=== PATIENT | female | born 2000 | race Caucasian/White ===

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

== ENCOUNTER → 2022-01-16 | Outpatient (CLI) | payer OTHER ==
[~2022-01-16] MED LIST changes: -QUET50TA3; +QUET50TA4
[2022-01-16 10:46] LABS: BASO # 0.1 10^3/uL (0.0-0.2); BASO % 1.1 % (0.0-1.0); EOS # 0.6 10^3/uL (0.0-0.5); EOS % 7.6 % (0.0-3.0); HEMATOCRIT 38.5 % (36.0-47.0); HEMOGLOBIN 12.7 g/dl (12.0-15.5); LYMPH # 3.1 10^3/uL (1.5-5.0); LYMPH % 42.7 % (24.0-44.0); MEAN CORPUSCULAR HEMOGLOBIN 28.8 pg (27.0-33.0); MEAN CORPUSCULAR VOLUME 87.3 fl (80.0-96.0); MONO # 0.8 10^3/uL (0.0-0.8); MONO % 11.3 % (2.0-8.0); NEUTROPHILS # 2.7 10^3/uL (1.5-8.5); PLATELET COUNT, AUTOMATED 332 10^3/uL (150-450); RED BLOOD COUNT 4.41 10^6/uL (4.00-5.40); WHITE BLOOD COUNT 7.2 10^3/uL (4.0-10.0)
[2022-01-16 11:08] LABS: HEMOGLOBIN A1c 5.3 %
[2022-01-16 11:21] LABS: ALBUMIN 3.8 GM/DL (3.2-5.2); ALT/SGPT 18 U/L (12-78); BILIRUBIN,DIRECT 0.1 MG/DL (0.0-0.2); BILIRUBIN,TOTAL 0.3 MG/DL (0.2-1.0); BLOOD UREA NITROGEN 13 MG/DL (7-18); CALCIUM LEVEL 9.7 MG/DL (8.5-10.1); CARBON DIOXIDE LEVEL 24 MEQ/L (21-32); CHLORIDE LEVEL 111 MEQ/L (98-107); CHOLESTEROL LEVEL 119 MG/DL (<200); CHOLESTEROL RISK RATIO 2.288 (<5); CREATININE FOR GFR 0.43 MG/DL (0.55-1.30); GLUCOSE, FASTING 105 MG/DL (70-100); HDL CHOLESTEROL 52 MG/DL (>40); LDL CHOLESTEROL 58 MG/DL (<100); NON-HDL-C 67 MG/DL; POTASSIUM SERUM 4.2 MEQ/L (3.5-5.1); SODIUM LEVEL 141 MEQ/L (136-145); TRIGLYCERIDES LEVEL 44 MG/DL (<150); VALPROIC ACID (DEPAKOTE) 23.4 UG/ML (50.0-100.0)
== END ==
LOC: M PLALAB 08:25
PROVIDERS: ATTEND Psychiatry & Neurology Psychiatry
DX: F90.2 Attention-deficit hyperactivity disorder, combined type (principal); F71 Moderate intellectual disabilities; Z65.8 Other specified problems related to psychosocial circumstances; F43.10 Post-traumatic stress disorder, unspecified; F41.1 Generalized anxiety disorder; F40.10 Social phobia, unspecified; F29 Unspecified psychosis not due to a substance or known physiological condition

== ENCOUNTER → 2023-02-07 | Outpatient (REF) | payer OTHER | LOC: M LAB REF 21:08 | PROVIDERS: ATTEND Physician Assistant | DX: J02.9 Acute pharyngitis, unspecified (principal) ==

== ENCOUNTER → 2023-03-07 | Outpatient (CLI) | payer OTHER ==
[2023-03-07 17:26] LABS: BASO # 0.1 10^3/uL (0.0-0.2); BASO % 1.3 % (0.0-1.0); EOS # 0.6 10^3/uL (0.0-0.5); EOS % 7.3 % (0.0-3.0); HEMATOCRIT 40.6 % (36.0-47.0); HEMOGLOBIN 13.4 g/dl (12.0-15.5); LYMPH # 2.8 10^3/uL (1.5-5.0); MEAN CORPUSCULAR HEMOGLOBIN 29.4 pg (27.0-33.0); MONO # 0.7 10^3/uL (0.0-0.8); MONO % 8.5 % (2.0-8.0); NEUTROPHILS # 3.8 10^3/uL (1.5-8.5); NEUTROPHILS % 47.8 % (36.0-66.0); PLATELET COUNT, AUTOMATED 335 10^3/uL (150-450); RED BLOOD COUNT 4.56 10^6/uL (4.00-5.40); WHITE BLOOD COUNT 7.9 10^3/uL (4.0-10.0)
[2023-03-07 17:51] LABS: VALPROIC ACID (DEPAKOTE) < 3.0 UG/ML (50.0-100.0)
[2023-03-07 17:55] LABS: ALBUMIN 4.1 G/DL (3.2-5.2); ALKALINE PHOSPHATASE 91 U/L (46-116); ALT/SGPT 15 U/L (7.0-40); AST/SGOT 12 U/L (<34); BILIRUBIN,DIRECT 0.1 MG/DL (<0.4); BILIRUBIN,TOTAL 0.3 MG/DL (0.3-1.2); BLOOD UREA NITROGEN 11 MG/DL (9-23); CALCIUM LEVEL 9.3 MG/DL (8.5-10.1); CARBON DIOXIDE LEVEL 25 MMOL/L (20-31); CHLORIDE LEVEL 106 MMOL/L (98-107); CHOLESTEROL LEVEL 132 MG/DL (<200); CHOLESTEROL RISK RATIO 2.27 (<5); CREATININE FOR GFR 0.57 MG/DL (0.55-1.30); GLUCOSE, FASTING 85 MG/DL (60-100); HDL CHOLESTEROL 58.1 MG/DL (>40); LDL CHOLESTEROL 62.9 MG/DL (<100); NON-HDL-C 73.9 MG/DL; POTASSIUM SERUM 4.6 MMOL/L (3.5-5.1); SODIUM LEVEL 137 MMOL/L (136-145); TOTAL PROTEIN 7.1 G/DL (5.7-8.2); TRIGLYCERIDES LEVEL 55 MG/DL (<150)
[2023-03-07 18:25] LABS: HEMOGLOBIN A1c 5.2 % (4.0-6.0)
== END ==
LOC: M PLALAB 16:14
PROVIDERS: ATTEND Psychiatry & Neurology Psychiatry
DX: F43.10 Post-traumatic stress disorder, unspecified (principal); F90.2 Attention-deficit hyperactivity disorder, combined type; F72 Severe intellectual disabilities; Z65.8 Other specified problems related to psychosocial circumstances; F41.1 Generalized anxiety disorder; F40.10 Social phobia, unspecified; F29 Unspecified psychosis not due to a substance or known physiological condition

== ENCOUNTER 2023-04-20 21:56 | Emergency (ER) | payer OTHER ==
[~2023-04-20] VITALS: Ht 152.4 cm; Wt 52.6 kg
[2023-04-20 22:27] LABS: URINE PREG TEST NEGATIVE (NEGATIVE)
[2023-04-21] MEDS ORDERED: DOXYCYCLINE HYCLATE 100MG TABLET PO ONE (01:10)
[2023-04-21] MEDS ORDERED: LIDOCAINE 1% SDV 5ML VIAL DILUENT ONE (01:10)
[2023-04-21] MEDS ORDERED: cefTRIAXone 500MG VIAL IM ONE (01:10)
[2023-04-21 01:41] LABS: APPEARANCE, URINE HAZY (CLEAR); BACTERIA, URINE AUTO NEGATIVE (NEGATIVE); BILIRUBIN, URINE AUTO NEGATIVE (NEGATIVE); BLOOD, URINE BLOOD NEGATIVE (NEGATIVE); COLOR, URINE YELLOW (YELLOW); GLUCOSE, URINE (UA) AUTO NEGATIVE (NEGATIVE); KETONE, URINE AUTO TRACE mg/dL (NEGATIVE); LEUKOCYTE ESTERASE, URINE AUTO NEGATIVE (NEGATIVE); MUCUS, URINE SMALL (NEGATIVE); NITRITE, URINE AUTO NEGATIVE (NEGATIVE); PROTEIN, URINE AUTO 1+ mg/dL (NEGATIVE); RBC, URINE AUTO 1 /HPF (0-3); SPECIFIC GRAVITY URINE AUTO 1.032 (1.002-1.035); SQUAMOUS EPITHELIAL CELL UR AU 4 /HPF (0-6); WBC, URINE AUTO 3 /HPF (0-3)
[2023-04-21] MEDS ORDERED: DOXY100T PO (01:55)
[2023-04-21 02:02] VITALS: BP 122/7; TEMP 97.5; O2SAT 98
[2023-04-21 02:58] LABS: GC DNA AMPLIFICATION NEGATIVE (NEGATIVE)
== END 2023-04-21 02:04 | disposition home or self-care (01) ==
LOC: M ED 21:56
DX: M25.561 Pain in right knee (principal); M25.562 Pain in left knee; D16.21 Benign neoplasm of long bones of right lower limb; Z20.2 Contact with and (suspected) exposure to infections with a predominantly sexual mode of transmission; F41.9 Anxiety disorder, unspecified; F32.A Depression, unspecified; F90.9 Attention-deficit hyperactivity disorder, unspecified type; F71 Moderate intellectual disabilities; Z79.2 Long term (current) use of antibiotics; Z79.899 Other long term (current) drug therapy
CPT/HCPCS: 73564; 81001; 84703; 87661; 87810; 87850; 96372; 99283; J0696

== ENCOUNTER 2023-04-28 06:10 | Emergency (ER) | payer OTHER ==
[~2023-04-28] VITALS: Ht 152.4 cm; Wt 50.8 kg
[~2023-04-28 06:10] MED LIST changes: +DOXY100T PO
[2023-04-28 06:11] VITALS: BP 130/68; TEMP 98; O2SAT 97
[2023-04-28 07:38] LABS: BASO # 0.1 10^3/uL (0.0-0.2); BASO % 0.6 % (0.0-1.0); EOS # 0.1 10^3/uL (0.0-0.5); EOS % 1.5 % (0.0-3.0); HEMATOCRIT 39.8 % (36.0-47.0); HEMOGLOBIN 13.4 g/dl (12.0-15.5); LYMPH # 2.4 10^3/uL (1.5-5.0); LYMPH % 26.2 % (24.0-44.0); MEAN CORPUSCULAR HEMOGLOBIN 29.1 pg (27.0-33.0); MEAN CORPUSCULAR HGB CONC 33.7 g/dl (32.0-36.5); MEAN CORPUSCULAR VOLUME 86.3 fl (80.0-96.0); MONO # 0.7 10^3/uL (0.0-0.8); MONO % 7.5 % (2.0-8.0); NEUTROPHILS # 5.8 10^3/uL (1.5-8.5); NEUTROPHILS % 63.6 % (36.0-66.0); PLATELET COUNT, AUTOMATED 332 10^3/uL (150-450); RED BLOOD COUNT 4.61 10^6/uL (4.00-5.40); WHITE BLOOD COUNT 9.1 10^3/uL (4.0-10.0)
[2023-04-28 08:02] LABS: ALBUMIN 4.1 G/DL (3.2-5.2); ALKALINE PHOSPHATASE 93 U/L (46-116); ALT/SGPT 19 U/L (7.0-40); AST/SGOT 47 U/L (<34); BILIRUBIN,DIRECT 0.2 MG/DL (<0.4); BILIRUBIN,TOTAL 0.7 MG/DL (0.3-1.2); BLOOD UREA NITROGEN 7 MG/DL (9-23); CALCIUM LEVEL 9.3 MG/DL (8.5-10.1); CARBON DIOXIDE LEVEL 24 MMOL/L (20-31); CHLORIDE LEVEL 106 MMOL/L (98-107); CREATININE FOR GFR 0.49 MG/DL (0.55-1.30); GLOMERULAR FILTRATION RATE > 60.0 (>60); GLUCOSE, FASTING 94 MG/DL (60-100); LIPASE 37 U/L (12-53); POTASSIUM SERUM 5.4 MMOL/L (3.5-5.1); SODIUM LEVEL 137 MMOL/L (136-145); TOTAL PROTEIN 7.7 G/DL (5.7-8.2)
[2023-04-28 08:08] LABS: HCG, SERUM QUALITATIVE NEGATIVE (NEGATIVE)
[2023-04-28] MEDS ORDERED: NS 1,000 ML IV ONE (09:30)
[2023-04-28] MEDS ORDERED: ISOVUE-370 76% 100ML VIAL As Ordered ONE (09:36)
== END 2023-04-28 12:29 | disposition left against medical advice (07) ==
LOC: M ED 06:10
DX: F43.0 Acute stress reaction (principal); R10.9 Unspecified abdominal pain; F90.9 Attention-deficit hyperactivity disorder, unspecified type; F41.9 Anxiety disorder, unspecified; Z79.2 Long term (current) use of antibiotics; Z79.899 Other long term (current) drug therapy; Z53.9 Procedure and treatment not carried out, unspecified reason
CPT/HCPCS: 74176; 80048; 80076; 83690; 84703; 85025; 96374; 99283; Q9967

== ENCOUNTER 2023-05-06 18:56 | Emergency (ER) | payer OTHER, SELFPAY ==
[~2023-05-06] VITALS: Ht 152.4 cm; Wt 51.3 kg
[2023-05-06 18:57] VITALS: BP 132/62; TEMP 97.8; O2SAT 100
== END 2023-05-06 19:59 | disposition left against medical advice (07) ==
LOC: M ED 18:56
DX: Z53.21 Procedure and treatment not carried out due to patient leaving prior to being seen by health care provider (principal)

== ENCOUNTER 2023-05-31 20:11 | Emergency (ER) | payer MEDICAID, OTHER, SELFPAY ==
[~2023-05-31] VITALS: Ht 152.4 cm; Wt 51.6 kg
[2023-06-01 00:29] VITALS: BP 122/57; TEMP 97.8; O2SAT 98
== END 2023-06-01 01:11 | disposition home or self-care (01) ==
LOC: M ED 20:11
DX: M25.561 Pain in right knee (principal); F43.10 Post-traumatic stress disorder, unspecified; F41.9 Anxiety disorder, unspecified; F32.A Depression, unspecified; F90.9 Attention-deficit hyperactivity disorder, unspecified type; Z79.899 Other long term (current) drug therapy; Z79.811 Long term (current) use of aromatase inhibitors

== ENCOUNTER 2023-07-13 21:32 | Emergency (ER) | payer MEDICAID, OTHER, SELFPAY ==
[~2023-07-13] VITALS: Ht 152.4 cm; Wt 49.1 kg
[2023-07-13 21:34] VITALS: TEMP 99.3
[2023-07-13] MEDS ORDERED: ONDANSETRON 4MG ORAL DISINTEGRATING TAB PO ONE (22:20)
[2023-07-13 23:38] VITALS: BP 128/74; O2SAT 98
== END 2023-07-13 23:44 | disposition home or self-care (01) ==
LOC: M ED 21:32
DX: M25.562 Pain in left knee (principal); R11.0 Nausea; F90.9 Attention-deficit hyperactivity disorder, unspecified type; F19.10 Other psychoactive substance abuse, uncomplicated

== ENCOUNTER 2023-07-20 21:00 | Emergency (ER) | payer OTHER ==
[~2023-07-20] VITALS: Ht 152.4 cm; Wt 48.0 kg
[2023-07-20 21:01] VITALS: BP 117/61; TEMP 99; O2SAT 97
== END 2023-07-21 00:27 | disposition home or self-care (01) ==
LOC: M ED 21:00
DX: M25.561 Pain in right knee (principal); F90.9 Attention-deficit hyperactivity disorder, unspecified type

== ENCOUNTER 2023-08-17 02:36 | Emergency (ER) | payer OTHER ==
[~2023-08-17] VITALS: Ht 152.4 cm; Wt 48.2 kg
[2023-08-17 07:32] LABS: BASO # 0.1 10^3/uL (0.0-0.2); BASO % 0.8 % (0.0-1.0); EOS # 0.2 10^3/uL (0.0-0.5); EOS % 1.6 % (0.0-3.0); HEMATOCRIT 36.3 % (36.0-47.0); HEMOGLOBIN 12.2 g/dl (12.0-15.5); LYMPH # 3.5 10^3/uL (1.5-5.0); LYMPH % 36.8 % (24.0-44.0); MEAN CORPUSCULAR HEMOGLOBIN 29.3 pg (27.0-33.0); MEAN CORPUSCULAR HGB CONC 33.6 g/dl (32.0-36.5); MEAN CORPUSCULAR VOLUME 87.3 fl (80.0-96.0); MONO # 0.8 10^3/uL (0.0-0.8); MONO % 8.6 % (2.0-8.0); NEUTROPHILS # 4.9 10^3/uL (1.5-8.5); PLATELET COUNT, AUTOMATED 362 10^3/uL (150-450); RED BLOOD COUNT 4.16 10^6/uL (4.00-5.40); WHITE BLOOD COUNT 9.5 10^3/uL (4.0-10.0)
[2023-08-17 07:50] LABS: LIPASE 30 U/L (12-53)
[2023-08-17 07:51] LABS: HCG, SERUM QUALITATIVE NEGATIVE (NEGATIVE)
[2023-08-17 07:53] LABS: ALBUMIN 3.9 G/DL (3.2-5.2); ALKALINE PHOSPHATASE 67 U/L (46-116); ALT/SGPT 26 U/L (7.0-40); AST/SGOT 22 U/L (<34); BILIRUBIN,DIRECT 0.1 MG/DL (<0.4); BILIRUBIN,TOTAL 0.4 MG/DL (0.3-1.2)
[2023-08-17 08:42] LABS: AMPHETAMINES LEVEL URINE NEGATIVE (NEGATIVE); BARBITURATES URINE NEGATIVE (NEGATIVE); BENZODIAZEPINES URINE NEGATIVE (NEGATIVE); CANNABINOIDS URINE NEGATIVE (NEGATIVE); COCAINE METABOLITE URINE NEGATIVE (NEGATIVE); METHADONE URINE NEGATIVE (NEGATIVE); OPIATES URINE NEGATIVE (NEGATIVE); PHENCYCLIDINE URINE NEGATIVE (NEGATIVE)
[2023-08-17 09:00] VITALS: BP 133/57; TEMP 98; O2SAT 98
[2023-08-17] MEDS ORDERED: POLY17PO18 PO (09:08)
== END 2023-08-17 09:20 | disposition home or self-care (01) ==
LOC: M ED 02:36
DX: K59.00 Constipation, unspecified (principal); F41.9 Anxiety disorder, unspecified; F17.200 Nicotine dependence, unspecified, uncomplicated; Z79.899 Other long term (current) drug therapy

== ENCOUNTER → 2023-10-03 | Outpatient (CLI) | payer OTHER ==
[~2023-10-03] MED LIST changes: +POLY17PO18 PO
== END ==
LOC: M PLARAD 09:53
PROVIDERS: ATTEND Orthopaedic Surgery
DX: M25.561 Pain in right knee (principal)

== ENCOUNTER → 2023-11-14 | Outpatient (REF) | payer OTHER ==
[2023-11-14 18:33] LABS: APPEARANCE, URINE CLOUDY (CLEAR); BACTERIA, URINE AUTO 1+ (NEGATIVE); BILIRUBIN, URINE AUTO NEGATIVE (NEGATIVE); BLOOD, URINE BLOOD 1+ (NEGATIVE); COLOR, URINE YELLOW (YELLOW); GLUCOSE, URINE (UA) AUTO NEGATIVE (NEGATIVE); KETONE, URINE AUTO NEGATIVE (NEGATIVE); LEUKOCYTE ESTERASE, URINE AUTO TRACE (NEGATIVE); MUCUS, URINE SMALL (NEGATIVE); NITRITE, URINE AUTO NEGATIVE (NEGATIVE); PROTEIN, URINE AUTO NEGATIVE (NEGATIVE); RBC, URINE AUTO 2 /HPF (0-3); SPECIFIC GRAVITY URINE AUTO 1.019 (1.002-1.035); SQUAMOUS EPITHELIAL CELL UR AU 12 /HPF (0-6); UROBILINOGEN, URINE AUTO 0.2 mg/dL (0.0-2.0); WBC, URINE AUTO 2 /HPF (0-3)
== END ==
LOC: M SFHCWAGY 16:51
PROVIDERS: ATTEND Nurse Practitioner Family
DX: R39.15 Urgency of urination (principal)

== ENCOUNTER → 2024-03-08 | Outpatient (CLI) | payer OTHER | LOC: M SOG 07:52 | PROVIDERS: ATTEND Physician Assistant | DX: M25.512 Pain in left shoulder (principal) ==

== ENCOUNTER → 2024-04-01 | Outpatient (CLI) | payer OTHER | LOC: M SOG 07:52 | PROVIDERS: ATTEND Physician Assistant | DX: M25.512 Pain in left shoulder (principal) ==

== ENCOUNTER → 2024-04-05 | Outpatient (CLI) | payer OTHER | LOC: M SOG 07:55 | PROVIDERS: ATTEND Orthopaedic Surgery | DX: M25.561 Pain in right knee (principal) ==

== ENCOUNTER → 2024-04-08 | Outpatient (REF) | payer OTHER | LOC: M SFHCPLAZ 12:03 | PROVIDERS: ATTEND Physician Assistant Medical | DX: R30.0 Dysuria (principal) ==

== ENCOUNTER → 2024-04-21 | Outpatient (REF) | payer OTHER, MEDICAID ==
[~2024-04-21] MED LIST changes: +DOXY100C82 PO; +EMTR1TAB16 PO; +IBUP-1022 PO; +RALT40TA PO; +SERT-141 PO
== END ==
LOC: M SFHCWAGY 09:38
PROVIDERS: ATTEND Nurse Practitioner Family
DX: Z12.4 Encounter for screening for malignant neoplasm of cervix (principal)

== ENCOUNTER 2024-04-25 17:56 | Emergency (ER) | payer OTHER, MEDICAID ==
[~2024-04-25] VITALS: Ht 152.4 cm; Wt 41.7 kg
[~2024-04-25 17:56] MED LIST changes: -DOXY100C82 PO; -EMTR1TAB16 PO; -IBUP-1022 PO; -RALT40TA PO; -SERT-141 PO
[2024-04-25] MEDS ORDERED: SERT-141 PO (18:24)
[2024-04-25 18:25] LABS: HEMATOCRIT 35.5 % (36.0-47.0); MEAN CORPUSCULAR HEMOGLOBIN 29.7 pg (27.0-33.0); MEAN CORPUSCULAR HGB CONC 33.8 g/dl (32.0-36.5); MEAN CORPUSCULAR VOLUME 87.9 fl (80.0-96.0); PLATELET COUNT, AUTOMATED 334 10^3/uL (150-450); RED BLOOD COUNT 4.04 10^6/uL (4.00-5.40); WHITE BLOOD COUNT 9.9 10^3/uL (4.0-10.0)
[2024-04-25] MEDS ORDERED: HOME MED LIST COMPLETE! XX SCH (18:25)
[2024-04-25 18:54] LABS: AMPHETAMINES LEVEL URINE NEGATIVE (NEGATIVE); BARBITURATES URINE NEGATIVE (NEGATIVE); BENZODIAZEPINES URINE NEGATIVE (NEGATIVE); CANNABINOIDS URINE NEGATIVE (NEGATIVE); COCAINE METABOLITE URINE NEGATIVE (NEGATIVE); METHADONE URINE NEGATIVE (NEGATIVE); OPIATES URINE NEGATIVE (NEGATIVE); PHENCYCLIDINE URINE NEGATIVE (NEGATIVE)
[2024-04-25 18:58] LABS: HCG, SERUM QUALITATIVE NEGATIVE (NEGATIVE)
[2024-04-25 19:01] LABS: ETHYL ALCOHOL (ETHANOL) < 0.003 % (0.000-0.010)
[2024-04-25 19:02] LABS: ALBUMIN 3.9 G/DL (3.2-5.2); ALKALINE PHOSPHATASE 64 U/L (46-116); ALT/SGPT 14 U/L (7.0-40); AST/SGOT 9 U/L (<34); BILIRUBIN,DIRECT < 0.1 MG/DL (<0.4); BILIRUBIN,TOTAL 0.2 MG/DL (0.3-1.2); BLOOD UREA NITROGEN 13 MG/DL (9-23); CALCIUM LEVEL 9.5 MG/DL (8.5-10.1); CARBON DIOXIDE LEVEL 23 MMOL/L (20-31); CHLORIDE LEVEL 110 MMOL/L (98-107); CREATININE FOR GFR 0.57 MG/DL (0.55-1.30); GLOMERULAR FILTRATION RATE > 60.0 (>60); GLUCOSE, FASTING 122 MG/DL (60-100); POTASSIUM SERUM 3.7 MMOL/L (3.5-5.1); SALICYLATE LEVEL < 3.0 MG/DL (<30); SODIUM LEVEL 140 MMOL/L (136-145); TOTAL PROTEIN 6.1 G/DL (5.7-8.2)
[2024-04-25 19:05] LABS: THYROID STIMULATING HORMONE 0.676 uIU/ML (0.55-4.78)
[2024-04-26] MEDS: ACETAMINOPHEN TAB 650MG DOSE (2X325MG) PO ONE (07:55)
[2024-04-26 09:04] VITALS: BP 123/61; TEMP 97.2; O2SAT 97
== END 2024-04-26 09:07 | disposition home or self-care (01) ==
LOC: EDBD 17:56 → M ED 17:56
DX: R45.4 Irritability and anger (principal); R45.851 Suicidal ideations; F32.A Depression, unspecified; Z79.899 Other long term (current) drug therapy

== ENCOUNTER → 2024-05-07 | Outpatient (CLI) | payer OTHER ==
[~2024-05-07] MED LIST changes: +SERT-141 PO
== END ==
LOC: M PLALAB 15:48
PROVIDERS: ATTEND Family Medicine
DX: M25.531 Pain in right wrist (principal)

== ENCOUNTER → 2024-05-11 | Outpatient (CLI) | payer OTHER | LOC: M PLAIMG 14:10 | PROVIDERS: ATTEND Physician Assistant Medical | DX: K59.09 Other constipation (principal) ==

== ENCOUNTER 2024-05-13 18:43 | Emergency (ER) | payer OTHER ==
[~2024-05-13] VITALS: Ht 154.9 cm; Wt 42.5 kg
[2024-05-14] MEDS: ACETAMINOPHEN TAB 650MG DOSE (2X325MG) PO ONE (01:31)
[2024-05-14 06:25] VITALS: BP 124/74; TEMP 98.8; O2SAT 98
[2024-05-15] MEDS ORDERED: EMTR1TAB16 PO (16:56)
[2024-05-15] MEDS ORDERED: IBUP-1022 PO (16:56)
[2024-05-15] MEDS ORDERED: RALT40TA PO (16:56)
[2024-05-15] MEDS ORDERED: DOXY100C82 PO (16:56)
== END 2024-05-14 06:27 | disposition home or self-care (01) ==
LOC: EDBD 18:43 → M ED 18:43
DX: S80.01XA Contusion of right knee, initial encounter (principal); W19.XXXA Unspecified fall, initial encounter; F41.9 Anxiety disorder, unspecified; Y92.009 Unspecified place in unspecified non-institutional (private) residence as the place of occurrence of the external cause; Y93.89 Activity, other specified; Y99.9 Unspecified external cause status

== ENCOUNTER 2024-05-15 12:03 | Emergency (ER) | payer OTHER ==
[~2024-05-15] VITALS: Ht 152.4 cm; Wt 41.5 kg
[~2024-05-15 12:03] MED LIST changes: +EMTRICITABINE/TENOFOVIR 200MG/300MG TABLET PO SCH; +RALTEGRAVIR 400 MG TAB (ISENTRESS) PO SCH
[2024-05-15 13:42] LABS: BASO # 0.1 10^3/uL (0.0-0.2); BASO % 1.2 % (0.0-1.0); EOS # 0.7 10^3/uL (0.0-0.5); EOS % 8.4 % (0.0-3.0); HEMATOCRIT 37.4 % (36.0-47.0); HEMOGLOBIN 12.5 g/dl (12.0-15.5); LYMPH # 2.5 10^3/uL (1.5-5.0); LYMPH % 30.3 % (24.0-44.0); MEAN CORPUSCULAR HEMOGLOBIN 29.7 pg (27.0-33.0); MEAN CORPUSCULAR HGB CONC 33.4 g/dl (32.0-36.5); MEAN CORPUSCULAR VOLUME 88.8 fl (80.0-96.0); MONO # 0.6 10^3/uL (0.0-0.8); MONO % 6.8 % (2.0-8.0); NEUTROPHILS # 4.4 10^3/uL (1.5-8.5); NEUTROPHILS % 53.1 % (36.0-66.0); PLATELET COUNT, AUTOMATED 348 10^3/uL (150-450); RED BLOOD COUNT 4.21 10^6/uL (4.00-5.40); WHITE BLOOD COUNT 8.2 10^3/uL (4.0-10.0)
[2024-05-15] MEDS ORDERED: EXPOSURE KIT-ADULT 7 DAY SUPPLY PO ONE ×2 (14:00→14:05)
[2024-05-15 14:03] LABS: AMPHETAMINES LEVEL URINE NEGATIVE (NEGATIVE); BARBITURATES URINE NEGATIVE (NEGATIVE)
[2024-05-15 14:04] LABS: BENZODIAZEPINES URINE NEGATIVE (NEGATIVE); CANNABINOIDS URINE NEGATIVE (NEGATIVE); COCAINE METABOLITE URINE NEGATIVE (NEGATIVE); METHADONE URINE NEGATIVE (NEGATIVE); OPIATES URINE NEGATIVE (NEGATIVE); PHENCYCLIDINE URINE NEGATIVE (NEGATIVE)
[2024-05-15 14:06] LABS: HCG, SERUM QUALITATIVE NEGATIVE (NEGATIVE)
[2024-05-15 14:08] LABS: ALBUMIN 4.1 G/DL (3.2-5.2); ALKALINE PHOSPHATASE 68 U/L (46-116); ALT/SGPT 14 U/L (7.0-40); AST/SGOT 11 U/L (<34); BILIRUBIN,TOTAL 0.3 MG/DL (0.3-1.2); BLOOD UREA NITROGEN 11 MG/DL (9-23); CALCIUM LEVEL 9.6 MG/DL (8.5-10.1); CARBON DIOXIDE LEVEL 27 MMOL/L (20-31); CHLORIDE LEVEL 111 MMOL/L (98-107); CREATININE FOR GFR 0.44 MG/DL (0.55-1.30); GLOMERULAR FILTRATION RATE > 60.0 (>60); GLUCOSE, FASTING 93 MG/DL (60-100); SODIUM LEVEL 139 MMOL/L (136-145); TOTAL PROTEIN 7.4 G/DL (5.7-8.2)
[2024-05-15 14:09] LABS: HEPATITIS B SURFACE ANTIBODY NEGATIVE (POSITIVE)
[2024-05-15 14:21] LABS: HEPATITIS B SURFACE ANTIGEN NEGATIVE (NEGATIVE)
[2024-05-15] MEDS: ULIPRISTAL ACETATE 30MG TAB (ELLA) PO ONE (14:29)
[2024-05-15] MEDS: BOOSTRIX VACCINE (TETANUS/DIPHTH/ACEL. PERTUSSIS) 0.5ML SYR IM.IMMUN ONE (14:31)
[2024-05-15 14:34] LABS: HIV 1&2 SCREEN NEGATIVE (NEGATIVE)
[2024-05-15 14:41] LABS: CPK CREATINE PHOSPHOKINASE 60 U/L (34-145)
[2024-05-15 14:43] LABS: HEPATITIS C VIRUS ABY INDEX < 0.02 INDEX (<0.8)
[2024-05-15 15:02] LABS: Trichomonas vaginalis (AMP) NOT DETECTED (NEGATIVE)
[2024-05-15 15:18] LABS: HEPATITIS B CORE ANTIBODY IGM NEGATIVE (NEGATIVE)
[2024-05-15 15:26] LABS: GC DNA AMPLIFICATION NEGATIVE (NEGATIVE)
[2024-05-15] MEDS ORDERED: EMTR1TAB16 PO (16:56)
[2024-05-15] MEDS ORDERED: DOXY100C82 PO (16:56)
[2024-05-15] MEDS ORDERED: RALT40TA PO (16:56)
[2024-05-15] MEDS ORDERED: IBUP-1022 PO (16:56)
[2024-05-15] MEDS: RALTEGRAVIR 400 MG TAB (ISENTRESS) PO ONE (17:26)
[2024-05-15] MEDS: EMTRICITABINE/TENOFOVIR 200MG/300MG TABLET PO ONE (17:26)
[2024-05-15 17:34] VITALS: BP 130/79; TEMP 97.1; O2SAT 97
== END 2024-05-15 17:56 | disposition home or self-care (01) ==
LOC: M ED 12:03
DX: T76.21XA Adult sexual abuse, suspected, initial encounter (principal); Y92.009 Unspecified place in unspecified non-institutional (private) residence as the place of occurrence of the external cause; Y93.89 Activity, other specified; Y99.9 Unspecified external cause status; Z79.899 Other long term (current) drug therapy; Z23 Encounter for immunization

== ENCOUNTER → 2024-05-20 | Outpatient (CLI) | payer OTHER ==
[~2024-05-20] MED LIST changes: +DOXY100C82 PO; +EMTR1TAB16 PO; -EMTRICITABINE/TENOFOVIR 200MG/300MG TABLET PO SCH; +IBUP-1022 PO; +RALT40TA PO; -RALTEGRAVIR 400 MG TAB (ISENTRESS) PO SCH
== END ==
LOC: M SOG 13:33
PROVIDERS: ATTEND Physician Assistant
DX: M25.531 Pain in right wrist (principal)

== ENCOUNTER 2024-06-14 23:13 | Emergency (ER) | payer MEDICAID, OTHER ==
[~2024-06-14] VITALS: Ht 152.4 cm; Wt 42.7 kg
[2024-06-15 03:43] VITALS: TEMP 98.6
[2024-06-15 05:34] VITALS: BP 111/66; O2SAT 96
== END 2024-06-15 05:41 | disposition home or self-care (01) ==
LOC: M ED 23:13
DX: S60.221A Contusion of right hand, initial encounter (principal); W22.09XA Striking against other stationary object, initial encounter; Y92.009 Unspecified place in unspecified non-institutional (private) residence as the place of occurrence of the external cause; Y93.89 Activity, other specified; Y99.9 Unspecified external cause status; Z79.899 Other long term (current) drug therapy; Z79.1 Long term (current) use of non-steroidal anti-inflammatories (NSAID)

== ENCOUNTER → 2024-10-04 | Outpatient (CLI) | payer MEDICARE, OTHER | LOC: M PLALAB 15:15 | PROVIDERS: ATTEND Family Medicine | DX: Z20.2 Contact with and (suspected) exposure to infections with a predominantly sexual mode of transmission (principal) ==

== ENCOUNTER 2024-10-06 20:32 | Emergency (ER) | payer MEDICARE ==
[~2024-10-06] VITALS: Ht 152.4 cm; Wt 42.5 kg
[2024-10-06 20:39] VITALS: BP 146/68; TEMP 98.6; O2SAT 96
== END 2024-10-06 22:50 | disposition home or self-care (01) ==
LOC: M ED 20:32
DX: M25.562 Pain in left knee (principal); M25.512 Pain in left shoulder; Z79.899 Other long term (current) drug therapy; Z79.1 Long term (current) use of non-steroidal anti-inflammatories (NSAID)

== ENCOUNTER → 2024-12-10 | Outpatient (CLI) | payer MEDICARE, MEDICAID ==
[~2024-12-10] MED LIST changes: +DOXY-442 PO; -DOXY100C82 PO
== END ==
LOC: M SOG 07:55
PROVIDERS: ATTEND Physician Assistant
DX: Z53.9 Procedure and treatment not carried out, unspecified reason (principal)

== ENCOUNTER 2025-01-15 04:06 | Emergency (ER) | payer MEDICARE, OTHER, MEDICAID ==
[~2025-01-15] VITALS: Ht 149.9 cm; Wt 43.2 kg
[2025-01-15 04:21] VITALS: TEMP 99.1
[2025-01-15 06:07] VITALS: BP 117/58
[2025-01-15 06:36] VITALS: O2SAT 98
== END 2025-01-15 07:02 | disposition home or self-care (01) ==
LOC: M ED 04:06
DX: S49.92XA Unspecified injury of left shoulder and upper arm, initial encounter (principal); M25.512 Pain in left shoulder; F41.9 Anxiety disorder, unspecified; Y04.8XXA Assault by other bodily force, initial encounter; Z79.899 Other long term (current) drug therapy; Z79.1 Long term (current) use of non-steroidal anti-inflammatories (NSAID); Y93.89 Activity, other specified; Y92.89 Other specified places as the place of occurrence of the external cause; Y99.9 Unspecified external cause status

== ENCOUNTER 2025-02-01 06:06 | Day surgery (SDC) | payer MEDICARE, MEDICAID ==
[~2025-02-01] VITALS: Ht 157.5 cm; Wt 44.5 kg
[~2025-02-01 06:06] MED LIST changes: +ATOM40CA9 PO; +DEPA1CAP PO; +MIRA3350 PO; +MM S100C PO; +NEOM28OI EXT; +SENN-186 PO; +SUZE50TA PO; +ZOLO100T PO
[2025-02-01] MEDS ORDERED: LR 1,000 ML IV SCH ×2 (06:20→08:45)
[2025-02-01] MEDS ORDERED: propofoL 200 MG/20 ML VIAL As Ordered ONE (07:10)
[2025-02-01] MEDS ORDERED: LIDOCAINE 2% 100MG/5ML SDV (FOR ANES.) As Ordered ONE (07:10)
[2025-02-01] MEDS ORDERED: MIDAZOLAM INJ 2MG/2ML VIAL As Ordered ONE (07:10)
[2025-02-01] MEDS ORDERED: ONDANSETRON 4MG 2ML VIAL As Ordered ONE (07:10)
[2025-02-01] MEDS ORDERED: fentaNYL 100 MCG/2 ML INJECTION As Ordered ONE (07:10)
[2025-02-01] MEDS ORDERED: ACETAMINOPHEN 1000MG/100ML IV BAG As Ordered ONE (07:11)
[2025-02-01] MEDS ORDERED: PHENYLephrine 500MCG 5ML (100MCG/ML) SYRINGE As Ordered ONE (07:48)
[2025-02-01] MEDS: ceFAZolin SODIUM 2 GM VIAL As Ordered ONE (07:49)
[2025-02-01] MEDS ORDERED: KETOROLAC 30 MG/ML 1ML VIAL As Ordered ONE (08:04)
[2025-02-01] MEDS ORDERED: dexmedeTOMIDine (4MCG/ML)200MCG/50ML BTL (PRECEDEX) As Ordered ONE (08:04)
[2025-02-01] MEDS: LIDOCAINE W/EPINEPHRINE 1% 20ML VIAL As Ordered ONE (08:11)
[2025-02-01] MEDS: MORPHINE 10 MG/ML 1ML VIAL As Ordered ONE (08:37)
[2025-02-01] MEDS ORDERED: oxyCODONE 5MG TAB PO PRN (08:45)
[2025-02-01] MEDS ORDERED: fentaNYL 100 MCG/2 ML INJECTION IV PRN (08:45)
[2025-02-01] MEDS ORDERED: ONDANSETRON 4MG 2ML VIAL IV PRN (08:45)
[2025-02-01] MEDS ORDERED: HYDROMORPHONE HCL 0.5 MG/ 0.5 ML SYRINGE IV PRN (08:45)
[2025-02-01] MEDS ORDERED: HYDR-3713 PO (09:16)
[2025-02-01] MEDS ORDERED: ECOT81TA5 PO (09:24)
[2025-02-01 09:29] VITALS: BP 118/56; TEMP 98.6; O2SAT 98
== END 2025-02-01 09:52 | disposition home or self-care (01) ==
LOC: M SDC 06:06
PROVIDERS: ATTEND Neuromusculoskeletal Medicine, Sports Medicine
DX: M22.41 Chondromalacia patellae, right knee (principal); S83.231A Complex tear of medial meniscus, current injury, right knee, initial encounter; M65.161 Other infective (teno)synovitis, right knee; K59.00 Constipation, unspecified; F41.9 Anxiety disorder, unspecified; F32.A Depression, unspecified; F71 Moderate intellectual disabilities; F43.10 Post-traumatic stress disorder, unspecified; F90.9 Attention-deficit hyperactivity disorder, unspecified type; L70.0 Acne vulgaris; Z79.899 Other long term (current) drug therapy
CPT/HCPCS: 29881; 81025; J0131; J0665; J0690; J1100; J1885; J2250; J2371; J2405; J3010

== ENCOUNTER 2025-03-29 23:14 | Emergency (ER) | payer MEDICARE, MEDICAID ==
[~2025-03-29] VITALS: Ht 144.8 cm; Wt 45.6 kg
[~2025-03-29 23:14] MED LIST changes: +ECOT81TA5 PO; +HYDR-3713 PO
[2025-03-29 23:34] VITALS: BP 120/72; O2SAT 97
[2025-03-29 23:48] VITALS: TEMP 99.7
[2025-03-30 00:20] LABS: ETHYL ALCOHOL (ETHANOL) < 0.003 % (0.000-0.010)
[2025-03-30 00:21] LABS: ALT/SGPT 13 U/L (7.0-40); AST/SGOT 20 U/L (<34); CALCIUM LEVEL 9.5 MG/DL (8.5-10.1); CARBON DIOXIDE LEVEL 24 MMOL/L (20-31); CHLORIDE LEVEL 104 MMOL/L (98-107); CREATININE FOR GFR 0.47 MG/DL (0.55-1.30); GLOMERULAR FILTRATION RATE > 90.0 (>60); POTASSIUM SERUM 4.4 MMOL/L (3.5-5.1); SALICYLATE LEVEL < 3.0 MG/DL (<30); SODIUM LEVEL 140 MMOL/L (136-145)
[2025-03-30 00:27] LABS: PLATELET COUNT, AUTOMATED 395 10^3/uL (150-450)
[2025-03-30 00:32] LABS: AMPHETAMINES LEVEL URINE NEGATIVE (NEGATIVE); BARBITURATES URINE NEGATIVE (NEGATIVE); BENZODIAZEPINES URINE NEGATIVE (NEGATIVE); CANNABINOIDS URINE NEGATIVE (NEGATIVE); COCAINE METABOLITE URINE NEGATIVE (NEGATIVE); METHADONE URINE NEGATIVE (NEGATIVE); OPIATES URINE NEGATIVE (NEGATIVE); PHENCYCLIDINE URINE NEGATIVE (NEGATIVE)
[2025-03-30] MEDS: ACETAMINOPHEN 325 MG TAB PO ONE (00:35)
[2025-03-30 00:40] LABS: HCG, SERUM QUALITATIVE NEGATIVE (NEGATIVE)
== END 2025-03-30 04:54 | disposition home or self-care (01) ==
LOC: M ED 23:14
DX: F43.0 Acute stress reaction (principal); F90.9 Attention-deficit hyperactivity disorder, unspecified type; F32.A Depression, unspecified; Z79.899 Other long term (current) drug therapy; Z79.82 Long term (current) use of aspirin; Z79.1 Long term (current) use of non-steroidal anti-inflammatories (NSAID)

== ENCOUNTER 2025-04-18 15:54 | Emergency (ER) | payer MEDICARE, MEDICAID ==
[~2025-04-18] VITALS: Ht 160 cm; Wt 46.4 kg
[2025-04-18 20:07] VITALS: BP 122/62; TEMP 98; O2SAT 98
== END 2025-04-18 20:10 | disposition home or self-care (01) ==
LOC: M ED 15:54
DX: S83.92XA Sprain of unspecified site of left knee, initial encounter (principal); X58.XXXA Exposure to other specified factors, initial encounter; F90.9 Attention-deficit hyperactivity disorder, unspecified type; F43.10 Post-traumatic stress disorder, unspecified; F41.9 Anxiety disorder, unspecified; Z79.82 Long term (current) use of aspirin; Z79.1 Long term (current) use of non-steroidal anti-inflammatories (NSAID); Z79.899 Other long term (current) drug therapy; Y92.9 Unspecified place or not applicable; Y93.9 Activity, unspecified; Y99.9 Unspecified external cause status

== ENCOUNTER 2025-06-11 02:00 | Emergency (ER) | payer MEDICARE, MEDICAID ==
[~2025-06-11] VITALS: Ht 152.4 cm; Wt 46.8 kg
[~2025-06-11 02:00] MED LIST changes: -IBUP-1022 PO; +IBUP600T42 PO
[2025-06-11 07:30] VITALS: BP 120/70; TEMP 96.9; O2SAT 99
[2025-06-11] MEDS ORDERED: SERTRALINE (07:33)
[2025-06-11] MEDS ORDERED: DIVA125C6 (07:33)
== END 2025-06-11 11:13 | disposition left against medical advice (07) ==
LOC: M ED 08:17
DX: Z53.21 Procedure and treatment not carried out due to patient leaving prior to being seen by health care provider (principal)

== ENCOUNTER → 2025-06-21 | Outpatient (CLI) | payer MEDICARE, MEDICAID ==
[~2025-06-21] MED LIST changes: +DIVA125C6; +SERTRALINE
== END ==
LOC: M PLAIMG 15:34
PROVIDERS: ATTEND Neuromusculoskeletal Medicine, Sports Medicine
DX: S83.242A Other tear of medial meniscus, current injury, left knee, initial encounter (principal); S83.92XA Sprain of unspecified site of left knee, initial encounter; M71.22 Synovial cyst of popliteal space [Baker], left knee; M25.462 Effusion, left knee

== ENCOUNTER → 2025-08-17 | Outpatient (CLI) | payer MEDICARE, MEDICAID | LOC: M WUC 10:29 | PROVIDERS: ATTEND Student in an Organized Health Care Education/Training Program | DX: S69.91XA Unspecified injury of right wrist, hand and finger(s), initial encounter (principal); X58.XXXA Exposure to other specified factors, initial encounter; Y92.9 Unspecified place or not applicable; Y93.9 Activity, unspecified; Y99.9 Unspecified external cause status ==